=== PATIENT | female | born 1945 | race Caucasian/White ===

== ENCOUNTER 2016-12-10 15:17 | Inpatient (IN) ==
[2016-12-10] MEDS: *HR* Metformin 500 MG TABLET PO SCH (17:30)
[2016-12-10] MEDS: Budesonide/Formoterol 80/4.5 MDI IH SCH (19:32)
[2016-12-10] MEDS: Mirtazapine 15 MG TABLET PO SCH (22:35)
[2016-12-10] MEDS: APIXABAN 5 MG TABLET PO SCH (22:35)
[2016-12-10] MEDS: *HR* OxyCODONE/APAP 5/325 TABLET PO PRN (23:04)
[2016-12-11 07:49] LABS: Basophils % 0.3 %; Eosinophils # 0.1 K/mcL (0.0-0.6); Eosinophils % 1.2 %; Hematocrit 51.4 % (35.3-44.9); Immature Granulocytes % 0.4 % (0-4); Lymphocytes # 1.3 K/mcL (0.6-4.6); Lymphocytes % 10.8 %; Mean Corpuscular HGB Conc 31.1 g/dL (31.6-35.5); Mean Corpuscular Hemoglobin 29.6 pg (28.0-33.3); Mean Platelet Volume 9.8 fL (9.4-12.4); Monocytes % 8.5 %; Neutrophils # 9.2 K/mcL (1.6-8.9); Platelet Count 283 K/mcL (140-400); Red Blood Count 5.41 M/mcL (3.82-4.97); Red Cell Distribution Width 14.8 % (11.5-14.5); Segmented Neutrophils % 78.8 %
[2016-12-11 08:49] LABS: INR 1.4; Prothrombin Time 14.7 Seconds (9.4-12.1)
[2016-12-11 08:52] LABS: Activated Partial Thrombo Time 37.2 Seconds (26.0-36.0)
[2016-12-11] MEDS ORDERED: Furosemide 20 MG TABLET PO SCH (09:00)
[2016-12-11 09:01] LABS: BUN/Creatinine Ratio 23 (6-26); Blood Urea Nitrogen 19 mg/dL (7-20); Calcium 9.2 mg/dL (8.6-10.8); Carbon Dioxide 31 mEq/L (19-29); Chloride 98 mEq/L (98-109); Glucose 90 mg/dL (70-99); Osmolality,Calculated 292 (280-300); Potassium 4.7 mEq/L (3.5-4.5); Sodium 140 mEq/L (136-145); eGFR For African Americans > 60 (> 60); eGFR For Non-African Americans > 60 (> 60)
[2016-12-11] MEDS: *HR* Metformin 500 MG TABLET PO SCH ×2 (09:11→17:11)
[2016-12-11] MEDS: APIXABAN 5 MG TABLET PO SCH ×2 (09:11→20:11)
[2016-12-11] MEDS: Budesonide/Formoterol 80/4.5 MDI IH SCH ×2 (10:01→20:07)
--- NOTE | 2016-12-11 17:08 | Internal Med History&Physical ---
Date of Encounter: 12/11/16 Time of Encounter: 16:30 Assessment and Plan (1) Pulmonary emboli Current visit: Yes Status: Acute She has been placed on Eliquis. Order hypercoagulable workup with next lab draw. Qualifiers: Pulmonary embolism type: other Chronicity: acute Acute cor pulmonale presence: with acute cor pulmonale Qualified Code(s): I26.09 - Other pulmonary embolism with acute cor pulmonale (2) DM type 2 (diabetes mellitus, type 2) Current visit: Yes Status: Acute Will decrease metformin. She reports being on steroids during her acute illness. We will continue Accu-Cheks with SSI. Qualifiers: Diabetes mellitus complication status: without complication Diabetes mellitus naphthalene still operator insulin use: without naphthalene still operator use Qualified Code(s): E11.9 - Type 2 diabetes mellitus without complications (3) Anxiety Current visit: No Status: Acute Will order prn Xanax (4) NSTEMI (non-ST elevated myocardial infarction) Current visit: No Status: Acute Continue metoprolol. Will increase dose since her blood pressure is suboptimally controlled. Internal Medicine - H&P: HPI Chief complaint: Pulmonary emboli Admitted From: Hospital to Hospital Transfer Plans for Post Hospital Care: Home History of present illness: Ms. Tello is a 71 year old female who was hospitalized at [facility] November 30- December 10 after presenting with dyspnea. She had acute respiratory failure requiring intubation and ventilator support. She had bilateral pulmonary emboli with upper and lower extremity Doppler showing upper extremity DVTs. There was evidence of right lower lobe pneumonia on chest CT and evidence of NSTEMI felt to be secondary to demand ischemia. No cardiac workup was done. She was stabilized and admitted to [facility] swing bed for rehabilitation therapy prior to returning home. She reports she was not told what precipitated the DVT/pulmonary emboli. She reports limited mobility at home for several years. No workup was done for hypercoagulable conditions. Chest CT showed pulmonary emboli but no obvious lung malignancies or lymphadenopathy etc. She denies known malignancy. She had 2 miscarriages during childbearing years. There is no family history of hypercoagulable conditions. She did have elevated hemoglobin/hematocrit documented and received a diagnosis of COPD. No pulmonary function testing was done. Past Med Surg Social Fam HX - Past Medical History Medical history: other - Social History Smoking Status: Current every day smoker Smokeless Tobacco Status: No Alcohol use: none Drug use: none - Family History Father Living Status: Age at : 66 Cause of : CHF, stroke Hx Family Cardiac Disorders: Yes (CHF, anuerysm) Hx Family Respiratory Disorders: No Hx Family Cancer: No Hx Family GI Disorders: No Hx Family Genitourinary Disorders: No Hx Family Endocrine Disorder: Yes (IDDM 1) Hx Family Musculoskeletal Disorders: No Hx Family Neuromuscular Disorders: No Hx Family Neurologic Disorders: No Hx Family HEENT Disorders: No Hx Family Autoimmune Disorders: No Hx Family Reproductive Disorders: No Hx Family Psychosocial Disorders: No Hx Family Medical Disorders: Yes Internal Medicine - H&P: Meds Albuterol Sulfate [Albuterol Inhaler] 1 puff IH Q4HR 11/30/16 [History] Apixaban [Eliquis] 5 mg PO BID #60 tablet 12/10/16 [Rx] Budesonide/Formoterol 80/4.5 [Symbicort 80/4.5] 2 puff IH BIDR #1 inhaler 12/10 [Rx] Furosemide [Lasix] 20 mg PO DAILY #30 tablet 12/10/16 [Rx] Metformin [Glucophage] 1,000 mg PO BIDWM #60 tablet 12/10/16 [Rx] Metoprolol [Lopressor] 25 mg PO DAILY #30 tablet 12/10/16 [Rx] Mirtazapine [Remeron] 15 mg PO HS #30 tablet 12/10/16 [Rx] Omeprazole [PriLOSEC] 20 mg PO DAILY@0730 #30 capsule. 12/10/16 [Rx] OxyCODONE/APAP 5/325 [Percocet 5/325 MG] 1 each PO Q6HR PRN #14 tablet 12/10/16 [Rx] Potassium Chloride 20 meq PO DAILY #30 tab.er.prt 12/10/16 [Rx] Allergies pain med Allergy (Uncoded 11/30/16 17:11) See Comments PATIENT'S FAMILY UNSURE OF PAIN MEDICATION BUT IT WAS GIVEN TO PATIENT "30 YEARS AGO" AND "THEY HAD TO CALL A CODE BLUE" - UNSURE OF PATIENTS REACTION All Systems PM: A 10-system review of systems was performed and is negative for pertinent findings except as documented above in the HPI. Review of systems: Gen.: She states her weight has been stable the past few months Cardiovascular: She had recent NSTEMI as per above. She has history of hypertension and had DVT/pulmonary emboli as per above. An echocardiogram done during her [facility] stay showed LVEF 65% with mild LV diastolic dysfunction. There was no significant valvular abnormalities seen. There was elevated RVSP estimate at 45 mmHg. Respiratory: She smoked since age 23 up to 2 packs per day. She has received diagnosis of COPD. GI: She denies disorders of her liver gallbladder or exocrine pancreas : She denies hematuria dysuria or kidney stones Neurologic: She denies large distribution strokes or seizures. Endocrine: She was diagnosed with DM 2 during her recent stay. Her hemoglobin A1c however was only 6.0%. She denies thyroid disease or hyperlipidemia Hematology/oncology: As per history of present illness Psychiatric: She has anxiety and has had panic attacks in the past. She has feelings of depression. She denies other mental health issues Musk skeletal: She has DJD but no known gout or other bone joint or muscle disorders. - Constitutional Vitals: Temp Pulse Resp BP Pulse Ox 97.7 F 85 16 143/76 95 12/11/16 11:11 12/11/16 14:48 12/11/16 14:48 12/11/16 14:48 12/11/16 14:48 Exam: Gen.: She is well-developed well-nourished female who appears in no severe distress at present time. HEENT: Head is atraumatic and normal cephalic. Eyes: EOMI. There is no scleral icterus. Mouth: Mucosa is moist. Neck: Supple and nontender. There is no thyromegaly or adenopathy noted. Heart: Regular without murmurs gallops or ectopics. Lungs: No wheezes or crackles are heard. Abdomen: Soft and nontender. No masses or guarding noted. Exam is limited because she is in the seated position. Extremities: She has dependent rubor. Her feet are cool to touch. Dorsalis pedis and posterior tibial pulses are virtually nonpalpable. She has mild DJD changes of her hands. Neurologic: Mental status: She is talkative and a good historian. Cranial nerves: Smile is symmetric. Forehead wrinkles bilaterally. Tongue protrudes midline. EOMI. Motor: There is no pronator drift. Cerebellar: Fair to nose is intact bilaterally. Skin: Warm and dry Internal Med - H&P Results - Labs CBC & Chem 7: 12/11/16 07:26 12/11/16 07:26 Labs: Short CBC 12/11/16 Range/Units 07:26 WBC 11.7 H (4.3-11.1) K/mcL Hgb 16.0 H (11.5-15.4) g/dL Hct 51.4 H (35.3-44.9) % Plt Count 283 (140-400) K/mcL Neutrophils # 9.2 H (1.6-8.9) K/mcL BMP 12/11/16 07:26 Sodium 140 Potassium 4.7 H Chloride 98 Carbon Dioxide 31 H BUN 19 Creatinine 0.81 Glucose 90 Calcium 9.2 - VTE Documentation of Mechanical Device: Graduated compression elastic hosiery
[2016-12-11] MEDS: *HR* OxyCODONE/APAP 5/325 TABLET PO PRN (18:10)
[2016-12-11] MEDS: Mirtazapine 15 MG TABLET PO SCH (20:11)
[2016-12-12] MEDS: Budesonide/Formoterol 80/4.5 MDI IH SCH ×2 (08:00→22:01)
[2016-12-12] MEDS: *HR* Metformin 500 MG TABLET PO SCH ×2 (08:49→17:46)
[2016-12-12] MEDS: APIXABAN 5 MG TABLET PO SCH ×2 (08:49→22:44)
[2016-12-12] MEDS: Bumetanide 1 MG TABLET PO SCH (08:50)
[2016-12-12] MEDS: Metoprolol XL (24 HR) Succ 50 MG TAB.ER.24H PO SCH (08:50)
[2016-12-12] MEDS: *HR* OxyCODONE/APAP 5/325 TABLET PO PRN ×2 (15:29→22:44)
[2016-12-12] MEDS: Mirtazapine 15 MG TABLET PO SCH (22:44)
[2016-12-13] MEDS: Budesonide/Formoterol 80/4.5 MDI IH SCH ×2 (07:29→21:21)
[2016-12-13] MEDS: *HR* Metformin 500 MG TABLET PO SCH ×2 (10:11→17:59)
[2016-12-13] MEDS: Bumetanide 1 MG TABLET PO SCH (10:12)
[2016-12-13] MEDS: Metoprolol XL (24 HR) Succ 50 MG TAB.ER.24H PO SCH (10:12)
[2016-12-13] MEDS: APIXABAN 5 MG TABLET PO SCH (10:12)
[2016-12-13] MEDS: *HR* OxyCODONE/APAP 5/325 TABLET PO PRN ×2 (12:02→18:07)
--- NOTE | 2016-12-13 15:11 | Internal Med Progress Note ---
Date of Encounter: 12/13/16 Time of Encounter: 12:55 - Assessment and plan (1) Pulmonary emboli Current Visit: Yes Status: Acute Assessment and plan: December 13. Continue Eliquis Qualifiers: Pulmonary embolism type: other Chronicity: acute Acute cor pulmonale presence: with acute cor pulmonale Qualified Code(s): I26.09 - Other pulmonary embolism with acute cor pulmonale (2) DM type 2 (diabetes mellitus, type 2) Current Visit: Yes Status: Acute Assessment and plan: December 13. Continue Glucophage and Accu-Cheks with SSI. Qualifiers: Diabetes mellitus complication status: without complication Diabetes mellitus penitentiary insulin use: without penitentiary use Qualified Code(s): E11.9 - Type 2 diabetes mellitus without complications (3) Anxiety Current Visit: No Status: Acute Assessment and plan: December 13. Continue when necessary Xanax (4) NSTEMI (non-ST elevated myocardial infarction) Current Visit: No Status: Acute Assessment and plan: December 13. Continue metoprolol - Subjective Interval history: December 13. She has no new complaints. - Constitutional Vitals: Temp Pulse Resp BP Pulse Ox 98.2 F 84 18 164/105 94 L 12/13/16 07:02 12/13/16 08:22 12/13/16 08:22 12/13/16 08:22 12/13/16 08:22 Exam: She is sitting comfortably in a wheelchair. Her affect is bright and cheerful. Her extremities show 2-3+ edema in the anterior shins bilaterally. Reviewed her medications and lab results. I explained to her that no hypercoagulable workup was ordered during her [facility] stay and no abdominal/pelvic CT has been done. She stated she will have her primary care provider order further testing as he feels is necessary. Internal Medicine: Result - Labs CBC & Chem 7: 12/11/16 07:26 12/11/16 07:26 - ABG Interpretation ABG results: PT/INR, D-dimer PT 14.7 Seconds (9.4-12.1) H 12/11/16 07:26 - VTE Documentation of Mechanical Device: Graduated compression elastic hosiery Consult Discharge Plan - Plan Referrals: NO,PCP [Primary Care Provider] - 1 week
[2016-12-14] MEDS: APIXABAN 5 MG TABLET PO SCH ×3 (02:53→20:23)
[2016-12-14] MEDS: Mirtazapine 15 MG TABLET PO SCH ×2 (02:53→20:23)
[2016-12-14] MEDS: Bumetanide 1 MG TABLET PO SCH (09:36)
[2016-12-14] MEDS: Metoprolol XL (24 HR) Succ 50 MG TAB.ER.24H PO SCH (09:36)
[2016-12-14] MEDS: *HR* Metformin 500 MG TABLET PO SCH (09:36)
[2016-12-14] MEDS: Budesonide/Formoterol 80/4.5 MDI IH SCH ×2 (10:50→22:36)
[2016-12-14] MEDS: *HR* OxyCODONE/APAP 5/325 TABLET PO PRN ×2 (15:12→20:23)
[2016-12-15 07:25] VITALS: BP 128/67
[2016-12-15] MEDS: Bumetanide 1 MG TABLET PO SCH (08:02)
[2016-12-15] MEDS: Metoprolol XL (24 HR) Succ 50 MG TAB.ER.24H PO SCH (08:03)
[2016-12-15] MEDS: APIXABAN 5 MG TABLET PO SCH (08:03)
[2016-12-15] MEDS: Budesonide/Formoterol 80/4.5 MDI IH SCH (09:36)
--- NOTE | 2016-12-15 11:03 | Discharge Summary ---
Date of Encounter: 12/15/16 Time of Encounter: 10:45 - Discharge Diagnosis (1) Pulmonary emboli Priority: Primary Status: Acute Qualifiers: Pulmonary embolism type: other Chronicity: acute Acute cor pulmonale presence: with acute cor pulmonale Qualified Code(s): I26.09 - Other pulmonary embolism with acute cor pulmonale (2) DM type 2 (diabetes mellitus, type 2) Priority: Secondary Status: Acute Qualifiers: Diabetes mellitus complication status: without complication Diabetes mellitus half-way insulin use: without rat exterminator use Qualified Code(s): E11.9 - Type 2 diabetes mellitus without complications (3) Anxiety Priority: Secondary Status: Acute (4) NSTEMI (non-ST elevated myocardial infarction) Priority: Secondary Status: Acute - Discharge Medications Prescriptions: Apixaban [Eliquis] 5 mg PO BID #60 tablet Bumetanide [Bumex] 1.5 mg PO DAILY #45 tablet Metoprolol XL (24 HR) Succ [Toprol Xl] 50 mg PO DAILY #30 tab.er.24h Home Medications: Albuterol Sulfate [Albuterol Inhaler] 1 puff IH Q4HR 11/30/16 [History] Budesonide/Formoterol 80/4.5 [Symbicort 80/4.5] 2 puff IH BIDR #1 inhaler 12/10 [Rx] Mirtazapine [Remeron] 15 mg PO HS #30 tablet 12/10/16 [Rx] Omeprazole [PriLOSEC] 20 mg PO DAILY@0730 #30 capsule. 12/10/16 [Rx] OxyCODONE/APAP 5/325 [Percocet 5/325 MG] 1 each PO Q6HR PRN #14 tablet 12/10/16 [Rx] Potassium Chloride 20 meq PO DAILY #30 tab.er.prt 12/10/16 [Rx] Apixaban [Eliquis] 5 mg PO BID #60 tablet 12/15/16 [Rx] Bumetanide [Bumex] 1.5 mg PO DAILY #45 tablet 12/15/16 [Rx] Metoprolol XL (24 HR) Succ [Toprol Xl] 50 mg PO DAILY #30 tab.er.24h 12/15/16 [ Rx] Allergies/Adverse Reactions: Allergies pain med Allergy (Uncoded 11/30/16 17:11) See Comments PATIENT'S FAMILY UNSURE OF PAIN MEDICATION BUT IT WAS GIVEN TO PATIENT "30 YEARS AGO" AND "THEY HAD TO CALL A CODE BLUE" - UNSURE OF PATIENTS REACTION Date of admission: 12/10/16 15:17 Primary care physician: Dr. Maxi Miller Consults: 12/10/16 15:23 Consult to Occupational Therapy [CONS] Routine Comment: eval, develop and implement plan of care Consult to Physical Therapy [CONS] Routine Comment: eval, develop and implement plan of care Consult to Bill Adjuster [CONS] Routine Reason for SW Consult: d/c planning 12/10/16 17:39 Consult to Nutrition [CONS] Routine Comment: Consulting Provider: NUTRITION Reason for Dietary Consult: MST Score - Patient Status Disposition: Home, Self-Care Overall status at discharge: patient is progressing back to baseline - Discharge Instructions Follow Up With: NO,PCP [Primary Care Provider] - 1 week - Diet and Activity Activity: wear oxygen at all times Diet: advance to your usual diet Hospital course: Ms. Tello is a 71 year old female who was hospitalized at [facility] November 30- December 10 after presenting with dyspnea. She had acute respiratory failure requiring intubation and ventilator support. She had bilateral pulmonary emboli with upper and lower extremity Doppler showing upper extremity DVTs. There was evidence of right lower lobe pneumonia on chest CT and evidence of NSTEMI felt to be secondary to demand ischemia. No cardiac workup was done. She was stabilized and admitted to [facility] swing bed for rehabilitation therapy prior to returning home. She reports she was not told what precipitated the DVT/pulmonary emboli. She reports limited mobility at home for several years. No workup was done for hypercoagulable conditions. Chest CT showed pulmonary emboli but no obvious lung malignancies or lymphadenopathy etc. She denies known malignancy. She had 2 miscarriages during childbearing years. There is no family history of hypercoagulable conditions. She did have elevated hemoglobin/hematocrit documented and received a diagnosis of COPD. No pulmonary function testing was done. Initial orders were written by the discharging physicians at [facility]. I saw her on December 11 and performed a swing bed history and physical. She had physical therapy and occupational therapy evaluations with ongoing intervention. She made satisfactory progress. She was continued on Eliquis for the DVT/pulmonary emboli. I offered doing hypercoagulable workup and abdominal/pelvic CT scan to further explore her for malignancy but she wished to have these done by her primary care provider. Her metformin was decreased and eventually discontinued. Blood sugars remain satisfactorily controlled. Her metoprolol was increased to 50 mg daily to improve blood pressure control. She will be discharged home on Toprol-XL 50 mg daily. On December 15 she stated she did not want to stay in swing bed any longer wished to be discharged home. She will follow with her primary care provider in the resident's clinic at [facility] in the 1 week. Room air oximetry checked prior to discharge shows saturation of 86% at rest so oxygen was prescribed at 2 L/m nasal cannula for 23/06 use with portable gas and concentrator. - Time Spent with Patient Total time spent providing and/or coordinating discharge services: - Constitutional Vitals: Temp Pulse Resp BP Pulse Ox 97.5 F L 76 20 128/67 92 L 12/15/16 07:17 12/15/16 07:17 12/15/16 07:17 12/15/16 07:17 12/15/16 07:17 - VTE Documentation of Mechanical Device: Graduated compression elastic hosiery
--- NOTE | 2016-12-15 12:03 | Physician Discharge Referral ---
Home Health/Hosp Referral Info Transfer to: Home Health Attending Provider: Carson Provider in Charge Post Discharge: PCP - Diagnosis (1) Pulmonary emboli Priority: Primary Status: Acute (2) DM type 2 (diabetes mellitus, type 2) Priority: Secondary Status: Acute (3) Anxiety Priority: Secondary Status: Acute (4) NSTEMI (non-ST elevated myocardial infarction) Priority: Secondary Status: Acute - Respiratory Orders Oxygen / L per min (Oxygen at 2 L/m nasal cannula 23/06) Smoking Cessation: Smoking cessation has been advised. For more information, call the [place] Tobacco Quit Line at 7-246-TJPQ-NOW. - Diet/Nutrition Diet/Nutrition Orders: Regular - Activity Activity Orders: Walker - Services Needed Following services are medically necessary services: Nursing, Home Health Aide, Physical Therapy, Occupational Therapy - Transfer Medications Prescriptions: Apixaban [Eliquis] 5 mg PO BID #60 tablet Bumetanide [Bumex] 1.5 mg PO DAILY #45 tablet Metoprolol XL (24 HR) Succ [Toprol Xl] 50 mg PO DAILY #30 tab.er.24h Home Medications: Albuterol Sulfate [Albuterol Inhaler] 1 puff IH Q4HR 11/30/16 [History] Budesonide/Formoterol 80/4.5 [Symbicort 80/4.5] 2 puff IH BIDR #1 inhaler 12/10 [Rx] Mirtazapine [Remeron] 15 mg PO HS #30 tablet 12/10/16 [Rx] Omeprazole [PriLOSEC] 20 mg PO DAILY@0730 #30 capsule. 12/10/16 [Rx] OxyCODONE/APAP 5/325 [Percocet 5/325 MG] 1 each PO Q6HR PRN #14 tablet 12/10/16 [Rx] Potassium Chloride 20 meq PO DAILY #30 tab.er.prt 12/10/16 [Rx] Apixaban [Eliquis] 5 mg PO BID #60 tablet 12/15/16 [Rx] Bumetanide [Bumex] 1.5 mg PO DAILY #45 tablet 12/15/16 [Rx] Metoprolol XL (24 HR) Succ [Toprol Xl] 50 mg PO DAILY #30 tab.er.24h 12/15/16 [ Rx] Allergies/Adverse Reactions: Allergies pain med Allergy (Uncoded 11/30/16 17:11) See Comments PATIENT'S FAMILY UNSURE OF PAIN MEDICATION BUT IT WAS GIVEN TO PATIENT "30 YEARS AGO" AND "THEY HAD TO CALL A CODE BLUE" - UNSURE OF PATIENTS REACTION Certification: Further, I certify that my clinical findings support that this patient is homebound (i.e. absences from home require considerable and taxing effort and are for medical reasons or mormonism services or infrequently or short duration when for other reasons) because: Homebound Reason: Leaving home requires considerable and taxing effort due to condition (Dyspnea on exertion, pulmonary emboli) Attestation: My signature below is to certify that this patient is under my care and that I, or nurse practitioner, or a physician's corporate law assistant working with me, has a face-to -face encounter with this patient.
[2016-12-15] MEDS: *HR* OxyCODONE/APAP 5/325 TABLET PO PRN (13:09)
== END 2016-12-15 18:02 | disposition home or self-care (01) | DRG 946 ==
LOC: INPPIK 15:17
PROVIDERS: ADMIT Internal Medicine; ATTEND Internal Medicine